=== PATIENT | male | born 1990 | race African-American/Black ===

== ENCOUNTER 2017-03-22 03:24 | Emergency (ER) | payer OTHER ==
[~2017-03-22] VITALS: Ht 167.6 cm; Wt 94.6 kg
[~2017-03-22 03:24] MED LIST: KLONOPIN PO; LOTRIMIN AF SP150 GM TP
[2017-03-22 04:29] LABS: HEMATOCRIT 40.8 % (38.0-50.0); HEMOGLOBIN 14.6 G/DL (12.5-16.6); MCH 30.1 PG (29.0-34.0); MCHC 35.8 G/DL (30.0-36.0); PLATELET COUNT 242 K/uL (156-360); RBC DIS.WIDTH-CV 12.4 % (11.8-14.6); RBC DIS.WIDTH-SD 37.3 % (39-53); RED BLOOD COUNT 4.85 M/uL (4.00-5.50); WHITE BLOOD COUNT 9.3 K/uL (4.1-10.2)
[2017-03-22 04:48] LABS: ALBUMIN 4.4 g/dL (3.2-4.8); MCV 84.1 FL (86-99)
[2017-03-22 04:49] LABS: CHLORIDE 103 mEq/L (99-109); POTASSIUM 2.7 mEq/L (3.7-5.4); SODIUM 137 mEq/L (136-147)
[2017-03-22 04:51] LABS: GLUCOSE 160 mg/dL (70-99); TOTAL PROTEIN 7.4 g/dL (6.4-8.3)
[2017-03-22 04:53] LABS: TOTAL BILIRUBIN 0.5 mg/dL (0.0-1.0)
[2017-03-22 04:54] LABS: SERUM ETHYL ALCOHOL < 10 mg/dL
[2017-03-22 04:55] LABS: ALKALINE PHOSPHATASE 72 IU/L (3-129); CREATININE 1.1 mg/dL (0.6-1.3); GFR ESTIMATE (CALCULATED) > 59 mL/min/ (58.99-99999)
[2017-03-22 04:56] LABS: AST (GOT) 36 IU/L (2-34)
[2017-03-22 04:57] LABS: UREA NITROGEN (BUN) 13 mg/dL (9-23)
[2017-03-22 04:58] LABS: ALT (GPT) 37 IU/L (3-49); SALICYLATE < 5.0 MG/DL (15-30)
[2017-03-22 04:59] LABS: ACETAMINOPHEN (TYLENOL) < 10 mcg/mL (10-30); LIPASE 32 U/L (1.0-51.0); TROP-I INTERPRETATION NEGATIVE; TROPONIN-I < 0.01 ng/mL (0.0-0.30)
[2017-03-22 06:20] LABS: AMPHETAMINE NEGATIVE (500 ng/mL); BARBITURATES NEGATIVE (200 ng/mL); BENZODIAZEPINES PRESUMPTIVE POSITIVE (150 ng/mL); BUPRENORPHINE NEGATIVE (10 ng/mL); COCAINE NEGATIVE (150 ng/mL); METHADONE NEGATIVE (200 ng/mL); METHAMPHETAMINE NEGATIVE (500 ng/mL); OPIATES (MORPHINE) NEGATIVE (100 ng/mL); OXYCODONE NEGATIVE (100 ng/mL); PHENCYCLIDINE NEGATIVE (25 ng/mL); PROPOXYPHENE NEGATIVE (300 ng/mL); THC CANNABINOIDS NEGATIVE (50 ng/mL); TRICYCLIC ANTIDEPRESSANTS NEGATIVE (300 ng/mL)
[2017-03-22 07:12] LABS: BENZODIAZEPINES, URINE SCREEN Negative (200 ng/mL)
[2017-03-22] MEDS ORDERED: CLOZAPINE50 MG PO (08:36)
[2017-03-22] MEDS ORDERED: CLOZAPINE100 MG PO (08:36)
[2017-03-22 11:25] LABS: ANISOCYTOSIS 1+; ATYPICAL LYMPHOCYTE 7.1 %; BAND NEUTROPHILS 1.8 % (0-8.0); MICROCYTOSIS 1+; MONOCYTES 5.3 % (0-9.0); PLAT.SUFFICIENCY ADEQUATE; SEG.NEUTROPHILS 70.8 % (46.0-76.0)
[2017-03-22 12:11] VITALS: BP 130/85
== END 2017-03-22 12:16 | disposition home or self-care (01) ==
LOC: EME → EDBD 03:24 → EME 03:24
PROVIDERS: Emergency Medicine
DX: F13.239 Sedative, hypnotic or anxiolytic dependence with withdrawal, unspecified (principal); F20.9 Schizophrenia, unspecified; Z91.19 Patient's noncompliance with other medical treatment and regimen; Z78.1 Physical restraint status
CPT/HCPCS: 71045; 80053; 83690; 84484; 84999; 85007; 85027; 90837; 93005; 99281; 99285; G0480; J1630; J2060; J3480; J7030